=== PATIENT | female | born 1935 | race Caucasian/White ===

== ENCOUNTER → 2017-12-29 09:03 | Outpatient (CLI) | payer MEDICARE, BC, SELFPAY ==
--- NOTE | 2017-12-29 09:13 | NVE_ITS ---
Venous Exam Indications: 729.5 Pain in limb. IMPRESSIONS 1. No evidence of deep vein thrombosis involving the left lower extremity 2. Small superficial vein thrombosis involving the superficial veins of the left lower extremity History: Left lower extremity pain. Varicose veins of both lower extremities. Thrombophlebitis involving the left lower extremity. Risk factors: Hypertension. Palpable knot on the left lower extremity near the medial malleolus. Patient states it's been there for 3 weeks with little to no improvement. Denies trauma. Left lower extremity venous duplex evaluation. Doppler flow study including spectral analysis, color and izquierdo scale imaging. Location: Vascular laboratory. Patient status: Outpatient. CRITICAL FINDINGS - Reported to: ALEIDA Mahoney - Read back and verified. - 12/29/17 - 9:45 - LLE positive for SVT in a superficial vein of the distal calf Tables: Venous flow and imaging: + +-------+ + Location Overall Flow properties + +-------+ + Left common femoral Patent Normal phasicity; spontaneous; normal augmentation; compressible + +-------+ + Left saphenofemoral junction Patent Compressible + +-------+ + Left profunda femoral Patent Compressible + +-------+ + Left femoral Patent Normal phasicity; spontaneous; normal augmentation; compressible + +-------+ + Left greater saphenous Patent Normal phasicity; spontaneous; normal augmentation; compressible + +-------+ + Left popliteal Patent Normal phasicity; spontaneous; normal augmentation; compressible + +-------+ + Left posterior tibial Patent Compressible + +-------+ + Left peroneal Patent Compressible + +-------+ + Left gastrocnemius Patent Compressible + +-------+ + Left soleal Patent Compressible + +-------+ + (Report amended ) Electronically signed by: Perez Canseco [id number]
== END ==
PROVIDERS: Family Provider Internal Medicine Adolescent Medicine; PCP Internal Medicine Adolescent Medicine; Visit Provider Internal Medicine Adolescent Medicine
DX: M79.605 Pain in left leg (principal); I80.3 Phlebitis and thrombophlebitis of lower extremities, unspecified
CPT/HCPCS: 93971

== ENCOUNTER → 2018-04-14 12:32 | Outpatient (CLI) | payer MEDICARE, BC, SELFPAY ==
--- NOTE | 2018-04-14 12:40 | NVE_ITS ---
Venous Exam Indications: 729.5 Pain in limb. IMPRESSIONS 1. There is no evidence of significant Reflux. 2. No evidence of deep or superficial vein thrombosis involving the left lower extremity No change from the study of 29-Dec-2017. 3. there appears to be a superficial thrombus in superficial vein left ankle area Left lower extremity venous duplex evaluation. Doppler flow study including spectral analysis, color and izquierdo scale imaging. Location: Vascular laboratory. Patient status: Outpatient. CRITICAL FINDINGS - Reported to: Kary Arrieta office - Read back and verified. - 04/14/18 - 1315 - None Tables: Venous flow and imaging: + +-------+ + Location Overall Flow properties + +-------+ + Left common femoral Patent Normal phasicity; spontaneous; normal augmentation; compressible + +-------+ + Left saphenofemoral junction Patent Compressible + +-------+ + Left profunda femoral Patent Compressible + +-------+ + Left femoral Patent Normal phasicity; spontaneous; normal augmentation; compressible + +-------+ + Left greater saphenous Patent Normal phasicity; spontaneous; normal augmentation; compressible + +-------+ + Left popliteal Patent Normal phasicity; spontaneous; normal augmentation; compressible + +-------+ + Left posterior tibial Patent Compressible + +-------+ + Left peroneal Patent Compressible + +-------+ + Left gastrocnemius Patent Compressible + +-------+ + Left soleal Patent Compressible + +-------+ + (Report amended ) Electronically signed by: Giorgio Tinsley [id number]
== END ==
PROVIDERS: PCP Internal Medicine Adolescent Medicine; Visit Provider Internal Medicine Adolescent Medicine
DX: M79.605 Pain in left leg (principal); R60.0 Localized edema
CPT/HCPCS: 93971

== ENCOUNTER → 2018-04-20 11:18 | Outpatient (CLI) | payer MEDICARE, BC, SELFPAY ==
--- NOTE | 2018-04-20 11:19 | XR_ITS ---
XR foot wt bearing LT 3V HISTORY: ITS.REASON: hammertoe pain ORDERING PHYSICIAN: Alise Yarbrough DPM PATIENT AGE: 82 years COMPARISON: None FINDINGS: No fracture or dislocation. No lytic or blastic change. There is normal mineralization.. The joint spaces are well-preserved. No significant degenerative/arthritic changes. No erosive changes evident. Hammertoe deformity involves the second and third toes IMPRESSION: Hammertoe deformity otherwise negative
--- NOTE | 2018-04-20 11:19 | XR_ITS ---
XR foot wt bearing RT 3V HISTORY: ITS.REASON: hammertoe pain ORDERING PHYSICIAN: Alise Yarbrough DPM PATIENT AGE: 82 years COMPARISON: None FINDINGS: There is mild hallux valgus with first MTP angle of 29 degrees with osteoarthritic change of the first metatarsophalangeal joint. Hammertoe deformity involves the second toe. No fracture or dislocation. No lytic or blastic change. IMPRESSION: 1. 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 2. Hammertoe deformity second digit
== END ==
PROVIDERS: Visit Provider Podiatrist
DX: B35.1 Tinea unguium (principal); M79.671 Pain in right foot; M79.672 Pain in left foot
CPT/HCPCS: 73630; 87102; 87206; 87220

== ENCOUNTER → 2019-03-26 10:44 | Outpatient (CLI) | payer MEDICARE, BC, SELFPAY ==
--- NOTE | 2019-03-26 10:46 | MR_ITS ---
MR lower leg LT wo con CLINICAL INDICATION: ITS.REASON: MASS OF LEFT LOWER LEG ORDERING PHYSICIAN: Donavan Arrieta MD PATIENT AGE: 83 years Comparison: None TECHNIQUE: Multiplanar multiecho sequences are performed without contrast. FINDINGS: A marker is placed at the area of concern along the medial aspect of the distal leg on the left. There is mild diffuse subcutaneous edema along the medial aspect of the distal tibia and ankle region. A definite soft tissue mass is not identified. Repeat study with contrast enhancement may had increased sensitivity. No abscess is evident. No acute bony anomalies. No evidence of osteomyelitis. IMPRESSION: There is subcutaneous edema along the medial aspect of the distal leg and ankle without obvious mass or abscess. Underlying inflammation/infection/cellulitis is considered.
== END ==
PROVIDERS: PCP Internal Medicine Adolescent Medicine; Visit Provider Internal Medicine Adolescent Medicine
DX: R22.42 Localized swelling, mass and lump, left lower limb (principal)
CPT/HCPCS: 73718

== ENCOUNTER → 2019-04-15 09:48 | Outpatient (CLI) | payer MEDICARE, BC, SELFPAY ==
--- NOTE | 2019-04-15 09:53 | XR_ITS ---
XR tibia fibula LT 2V Ordering Physician: Wendy Pino MD Patient Age: 83 years: Female HISTORY: ITS.REASON: 2 views Thrombosis medial side near ankle December 20, 2017. Pain swelling TECHNIQUE: AP and lateral view tibia, fibula. COMPARISON : March 26, 2019 MRI left lower leg & left foot 04/20/2018 FINDINGS the tibia and fibula are intact. Osseous structures intact with no fracture. Bones well mineralized. No osseous lesions. Suspect varicosities most likely account for some subtle subcutaneous soft tissue density medial to the proximal tibia on frontal projection. Today's lower leg study includes 2 views of the left ankle & knee which appear intact.. There are degenerative changes at knee noted IMPRESSION: ... The left tibia and fibula intact. No osseous lesions nor abnormalities Mild degenerative changes left knee noted Suspect venous varicosities account for minimal SQ density medial to the proximal tibia.
--- NOTE | 2019-04-15 10:46 | NVE_ITS ---
Venous Exam IMPRESSIONS No evidence of deep or superficial vein thrombosis involving the left lower extremity History: Left lower extremity pain. PMH: Deep vein thrombosis. Risk factors: Hypertension. Patient had an SVT in left lower extremity 03/2018. She currently takes an 81 mg ASA daily. She denies any trauma to lower extremities. Left lower extremity venous duplex evaluation. Doppler flow study including spectral analysis, color and izquierdo scale imaging. Location: Vascular laboratory. Patient status: Outpatient. Tables: Venous flow and imaging: + +-------+ + Location Overall Flow properties + +-------+ + Left common femoral Patent Normal phasicity; spontaneous; normal augmentation; compressible + +-------+ + Left saphenofemoral junction Patent Compressible + +-------+ + Left profunda femoral Patent Compressible + +-------+ + Left femoral Patent Normal phasicity; spontaneous; normal augmentation; compressible + +-------+ + Left greater saphenous Patent Normal phasicity; spontaneous; normal augmentation; compressible + +-------+ + Left popliteal Patent Normal phasicity; spontaneous; normal augmentation; compressible + +-------+ + Left posterior tibial Patent Compressible + +-------+ + Left peroneal Patent Compressible + +-------+ + Left gastrocnemius Patent Compressible + +-------+ + Left soleal Patent Compressible + +-------+ + (Report amended ) Electronically signed by: Giorgio Tinsley [id number]
== END ==
PROVIDERS: PCP Internal Medicine Adolescent Medicine; Visit Provider Orthopaedic Surgery
DX: M89.8X6 Other specified disorders of bone, lower leg (principal); M79.89 Other specified soft tissue disorders; M79.605 Pain in left leg
CPT/HCPCS: 73590; 93971

== ENCOUNTER → 2019-06-09 12:25 | Outpatient (CLI) | payer MEDICARE, BC, SELFPAY ==
--- NOTE | 2019-06-09 12:34 | XR_ITS ---
XR wrist LT min 3V HISTORY ITS.REASON: left distal radius fracture follow up in cast ORDERING PHYSICIAN: Venkatesh Le MD PATIENT AGE: 84 years Comparison: 05/29/2019 FINDINGS: Today's obtained through a cast. Comminuted fracture is once again noted involving the distal radius with mild dorsal angulation of the distal fracture fragment overall not significant change. IMPRESSION: No change nondisplaced dorsally angulated distal radial fracture
== END ==
PROVIDERS: PCP Internal Medicine Adolescent Medicine; Visit Provider Orthopaedic Surgery
DX: S52.502A Unspecified fracture of the lower end of left radius, initial encounter for closed fracture (principal)
CPT/HCPCS: 73110

== ENCOUNTER → 2019-07-07 08:52 | Outpatient (CLI) | payer MEDICARE, BC, SELFPAY ==
--- NOTE | 2019-07-07 08:57 | XR_ITS ---
XR wrist LT min 3V HISTORY follow-up fracture ITS.REASON: wrist fracture ORDERING PHYSICIAN: Venkatesh Le MD PATIENT AGE: 84 years Comparison: 06/09/2019 FINDINGS: Casted been removed. Healing impacted fracture present involving the distal radius with mild dorsal displacement of the distal fracture fragment x 5 mm along with mild dorsal angulation of the distal fracture fragment. There is mild dorsal displacement of the lunate. Degenerative changes are present at the first metacarpal carpal joint and scaphotrapezium joint. IMPRESSION: Healing displaced distal radial fracture
== END ==
PROVIDERS: PCP Internal Medicine Adolescent Medicine; Visit Provider Orthopaedic Surgery
DX: S62.102A Fracture of unspecified carpal bone, left wrist, initial encounter for closed fracture (principal)
CPT/HCPCS: 73110

== ENCOUNTER 2019-07-07 10:16 | Outpatient (RCR) | payer MEDICARE, BC, SELFPAY | END 2019-07-07 10:30 | disposition home or self-care (01) | LOC: OT 10:16 | PROVIDERS: Visit Provider Orthopaedic Surgery | DX: S52.502K Unspecified fracture of the lower end of left radius, subsequent encounter for closed fracture with nonunion (principal) | CPT/HCPCS: 97763 ==

== ENCOUNTER 2019-08-16 08:00 | Outpatient (RCR) | payer MEDICARE, BC, SELFPAY ==
--- NOTE | 2019-07-12 08:38 | HMH.OTOPEV ---
OT Inpatient Evaluation Rehab OT Outpatient Eval Start: 07/12/19 08:26 Freq: Status: Active Protocol: Document 07/12/19 08:27 TFRY (Rec: 07/12/19 08:36 TFRY [id number]) Electronically Signed By Mandy Enriquez OT 07/12/19 08:27 Outpatient Therapy Subjective History Subjective History This is a 84 year old right handed female referred to occupational therapy for left distal radius fracture. Patient reports falling on May 29 in her yard backwards. She has been seen by Dr. Le and was in a cast for 6 weeks. Chief Complaint Pain,Stiff Symptom Type Ache,Burning,Tingling Symptoms Relieved By Rest/Positioning,Brace/Support Symptoms Aggravated By Physical Activity Prior Functional Limitations None Current Functional Limitations Housework,Dressing,Sleeping Symptom Description Constant but Variable Level of pain today (0-10) 3 Pain scale - at its best (0-10) 3 Pain scale - at its worst (0-10) 8 Wrist/Hand Eval Wrist Range of Motion Left Wrist Limitations of Range of Motion Pain Wrist Extension Active Range of Motion ( 50 degrees) Wrist Extension Passive Range of Motion 60 (degrees) Wrist Flexion Active Range of Motion ( 30 degrees) Wrist Flexion Passive Range of Motion ( 50 degrees) Wrist Radial Deviation Active Range of 0 Motion (degrees) Wrist Radial Deviation Passive Range of 0 Motion (degrees) Wrist Ulnar Deviation Active Range of 0 Motion (degrees) Wrist Ulnar Deviation Passive Range of 0 Motion (degrees) Wrist Manual Muscle Testing Left Wrist Extension Strength Grade 3 Fair Wrist Flexion Strength Grade 3 Fair Wrist Radial Deviation Strength Grade 3 Fair Wrist Ulnar Deviation Strength Grade 3 Fair Product Safety Test Engineer/Pinch Strength Product Safety Test Engineer Strength Measurement (lbs) 5 OT Outpatient Assessment Impairments Problems/Impairments Impaired Range of Motion, Impaired Strength,Impaired Dressing,Subjective C/O Pain Prognosis Rehab Potential Good Clinical Impression Consistent with Diagnosis Yes Short Term Goals Number of Weeks 3 Increase Range of Motion Yes: AROM Left wrist flexion - 35; ext. - 55 Increase Strength Yes: Left wrist strength - 3+/ 5; Left physicist acoustics strength - 10 lbs Improve Ability to Dress Self Yes Improve Ability For Househol
== END 2019-09-01 13:00 | disposition home or self-care (01) ==
LOC: OT 08:00
PROVIDERS: PCP Internal Medicine Adolescent Medicine; Visit Provider Orthopaedic Surgery
DX: S52.502K Unspecified fracture of the lower end of left radius, subsequent encounter for closed fracture with nonunion (principal)
CPT/HCPCS: 97014; 97110; 97140; 97165; G0283

== ENCOUNTER → 2019-08-18 09:14 | Outpatient (CLI) | payer MEDICARE, BC, SELFPAY ==
--- NOTE | 2019-08-18 09:27 | XR_ITS ---
PROCEDURE: XR WRIST LT MIN 3V CLINICAL INDICATION: left distal radius fracture follow up Follow-up fracture knee COMPARISON: Wrist L from 05/29/2019 FINDINGS: There is a healing fracture involving the distal aspect of the radius which is nondisplaced. There is mild dorsal angulation of the distal fracture fragment approximately 20 degrees. The fracture line is less visible compared to the previous exam. Severe osteoarthritic changes are present at the 1st metacarpal-carpal joint. IMPRESSION: Healing nondisplaced distal radial fracture with dorsal angulation of the distal fracture fragment Dictated by: Giorgio Tinsley MD 08/18/2019 10:39 Electronically signed by Giorgio Tinsley MD in [place] 08/18/2019 10:39
== END ==
PROVIDERS: PCP Internal Medicine Adolescent Medicine; Visit Provider Orthopaedic Surgery
DX: S52.502A Unspecified fracture of the lower end of left radius, initial encounter for closed fracture (principal)
CPT/HCPCS: 73110

== ENCOUNTER → 2019-10-04 09:49 | Outpatient (CLI) | payer MEDICARE, BC, SELFPAY ==
--- NOTE | 2019-10-04 09:59 | XR_ITS ---
PROCEDURE: XR DEXA AXIAL SKELETON CLINICAL HISTORY: OSTEOPOROSIS COMPARISON: No exams were available for comparison FINDINGS: The L1-L4 density is 1.125 grams/centimeters sq with a T-score of -0.5. Left femoral neck density is 0.959 grams/centimeters sq with a T-score -0.6 the IMPRESSION: Normal bone density with low fracture risk. Suggest follow-up exam October 2021 Dictated by: Giorgio Tinsley MD 10/04/2019 12:08 Electronically signed by Giorgio Tinsley MD in [place] 10/04/2019 12:08
== END ==
PROVIDERS: PCP Internal Medicine Adolescent Medicine; Visit Provider Internal Medicine Adolescent Medicine
DX: M81.0 Age-related osteoporosis without current pathological fracture (principal)
CPT/HCPCS: 77080

== ENCOUNTER → 2020-08-23 08:04 | Outpatient (CLI) | payer MEDICARE, BC, SELFPAY ==
[2020-08-23 15:21] LABS: Basophils # 0.1 K/mm3 (0-0.2); Eosinophils # 0.1 K/mm3 (0.0-0.4); Hematocrit 40.2 % (37.0-47.0); Hemoglobin 13.4 g/dL (12.2-16.2); Lymphocytes # 1.6 K/mm3 (0.7-4.5); Mean Corpuscular HGB Conc 33.3 g/dL (31.8-35.4); Mean Corpuscular Hemoglobin 31.1 pg (27.0-31.2); Mean Corpuscular Volume 93.2 fl (81-99); Mean Platelet Volume 9.3 fl (7.4-10.4); Monocytes # 0.7 K/mm3 (0.1-1.0); Monocytes % 12.9 % (1.7-9.3); Neutrophils # 2.9 K/mm3 (1.8-7.8); Neutrophils % 55.1 % (37.0-80.0); Platelet Count 252 K/mm3 (142-424); Red Blood Count 4.32 M/mm3 (4.20-5.40); Red Cell Distribution Width 13.3 % (11.5-17.5); White Blood Count 5.4 K/mm3 (4.8-10.8)
[2020-08-23 15:27] LABS: Chloride 104 mmol/L (98-107)
[2020-08-23 15:28] LABS: Potassium 4.5 mmoL/L (3.5-5.1); Sodium 140 mmol/L (136-145)
[2020-08-23 15:30] LABS: Alanine Aminotransferase 18 U/L (12-78); Albumin/Globulin Ratio 1.5 (1.1-1.8); Alkaline Phosphatase 73 U/L (38-126); Anion Gap 12.5 mEq/L (5-15); Aspartate Amino Transferase 33 U/L (14-36); Bilirubin,Total 0.6 mg/dl (0.2-1.3); Blood Urea Nitrogen 22 mg/dl (7-17); Carbon Dioxide 28 mmol/L (22.0-30.0); Cholesterol 218 mg/dl (140-200); Estimated Glomerular Filt Rate 60 ml/min (>60); GFR (African American) 72 ML/MIN (>60); Globulin 2.7 g/dL (1.3-3.2); Total Protein,Serum 6.7 g/dl (6.3-8.2); Triglycerides 77 mg/dl (30-150); VLDL Cholesterol 15 mg/dL (0-40)
[2020-08-23 15:31] LABS: Calcium 9.8 mg/dl (8.4-10.2); Chol/HDL Ratio 2.7 (1-3.5); Glucose 102 mg/dl (74-100); HDL Cholesterol 80 mg/dl (40-60)
[2020-08-23 15:42] LABS: Direct LDL Cholesterol 112.18 mg/dL (100-129)
== END ==
PROVIDERS: Visit Provider Internal Medicine Adolescent Medicine
DX: E78.5 Hyperlipidemia, unspecified (principal); I10 Essential (primary) hypertension
CPT/HCPCS: 36415; 80053; 80061; 85025

== ENCOUNTER → 2021-02-13 10:47 | Outpatient (CLI) | payer MEDICARE, BC, SELFPAY ==
[2021-02-13 14:12] LABS: Chloride 106 mmol/L (98-107)
[2021-02-13 14:13] LABS: Potassium 4.4 mmoL/L (3.5-5.1); Sodium 139 mmol/L (136-145)
[2021-02-13 14:15] LABS: Alanine Aminotransferase 18 U/L (12-78); Alkaline Phosphatase 94 U/L (38-126); Aspartate Amino Transferase 33 U/L (14-36); Bilirubin,Total 0.5 mg/dl (0.2-1.3); Blood Urea Nitrogen 24 mg/dl (7-17); Estimated Glomerular Filt Rate 68 ml/min (>60); GFR (African American) 82 ML/MIN (>60)
[2021-02-13 14:16] LABS: Albumin Level 4.4 g/dl (3.5-5.0); Albumin/Globulin Ratio 1.6 (1.1-1.8); Anion Gap 10.4 mEq/L (5-15); Calcium 10.2 mg/dl (8.4-10.2); Carbon Dioxide 27 mmol/L (22.0-30.0); Chol/HDL Ratio 2.8 (1-3.5); Cholesterol 229 mg/dl (140-200); Globulin 2.8 g/dL (1.3-3.2); Glucose 96 mg/dl (74-100); HDL Cholesterol 82 mg/dl (40-60); Total Protein,Serum 7.2 g/dl (6.3-8.2); Triglycerides 70 mg/dl (30-150); VLDL Cholesterol 14 mg/dL (0-40)
[2021-02-13 14:34] LABS: Direct LDL Cholesterol 113.64 mg/dL (100-129)
[2021-02-13 15:06] LABS: Basophils % 0.6 % (0.1-2.0); Eosinophils % 0.4 % (0.1-12.0); Hematocrit 38.6 % (37.0-47.0); Hemoglobin 12.7 g/dL (12.2-16.2); Lymphocytes # 1.4 K/mm3 (0.7-4.5); Lymphocytes % 27.5 % (10-50); Mean Corpuscular Hemoglobin 29.7 pg (27.0-31.2); Mean Corpuscular Volume 90.1 fl (81-99); Mean Platelet Volume 8.8 fl (7.4-10.4); Monocytes # 0.6 K/mm3 (0.1-1.0); Monocytes % 10.8 % (1.7-9.3); Neutrophils # 3.1 K/mm3 (1.8-7.8); Neutrophils % 60.8 % (37.0-80.0); Platelet Count 255 K/mm3 (142-424); Red Blood Count 4.28 M/mm3 (4.20-5.40); Red Cell Distribution Width 13.2 % (11.5-17.5); White Blood Count 5.1 K/mm3 (4.8-10.8)
== END ==
PROVIDERS: Visit Provider Internal Medicine Adolescent Medicine
DX: I10 Essential (primary) hypertension (principal); E78.5 Hyperlipidemia, unspecified
CPT/HCPCS: 36415; 80053; 80061; 85025

== ENCOUNTER → 2021-08-28 10:30 | Outpatient (CLI) | payer MEDICARE, BC, SELFPAY ==
[2021-08-28 13:30] LABS: Basophils % 0.5 % (0.1-2.0); Eosinophils % 0.6 % (0.1-12.0); Hematocrit 39.3 % (37.0-47.0); Hemoglobin 12.4 g/dL (12.2-16.2); Lymphocytes # 1.7 K/mm3 (0.7-4.5); Lymphocytes % 26.4 % (10-50); Mean Corpuscular HGB Conc 31.7 g/dL (31.8-35.4); Mean Corpuscular Hemoglobin 30.4 pg (27.0-31.2); Mean Platelet Volume 9.6 fl (7.4-10.4); Monocytes # 0.4 K/mm3 (0.1-1.0); Monocytes % 6.8 % (1.7-9.3); Neutrophils # 4.2 K/mm3 (1.8-7.8); Neutrophils % 65.7 % (37.0-80.0); Platelet Count 264 K/mm3 (142-424); Red Blood Count 4.09 M/mm3 (4.20-5.40); Red Cell Distribution Width 13.1 % (11.5-17.5); White Blood Count 6.4 K/mm3 (4.8-10.8)
[2021-08-28 13:53] LABS: Anion Gap 11.4 mEq/L (5-15); Blood Urea Nitrogen 17 mg/dl (7-17); Calcium 9.8 mg/dl (8.4-10.2); Carbon Dioxide 29 mmol/L (22.0-30.0); Chloride 105 mmol/L (98-107); Chol/HDL Ratio 2.7 (1-3.5); Cholesterol 222 mg/dl (140-200); Estimated Glomerular Filt Rate 68 ml/min (>60); GFR (African American) 82 ML/MIN (>60); Glucose 94 mg/dl (74-100); HDL Cholesterol 82 mg/dl (40-60); Potassium 4.4 mmoL/L (3.5-5.1); Sodium 141 mmol/L (136-145); Triglycerides 71 mg/dl (30-150); VLDL Cholesterol 14 mg/dL (0-40)
[2021-08-28 14:03] LABS: Direct LDL Cholesterol 106.84 mg/dL (100-129)
[2021-08-28 14:09] LABS: 25-OH Vitamin D, Total 45.4 ng/mL (30-100)
== END ==
PROVIDERS: Visit Provider Internal Medicine Adolescent Medicine
DX: E78.5 Hyperlipidemia, unspecified (principal); M81.0 Age-related osteoporosis without current pathological fracture
CPT/HCPCS: 36415; 80048; 80061; 82306; 85025

== ENCOUNTER → 2021-11-21 13:24 | Outpatient (CLI) | payer MEDICARE, BC, SELFPAY ==
[2021-11-21 13:55] LABS: Basophils # 0.1 K/mm3 (0-0.2); Eosinophils % 0.4 % (0.1-12.0); Hemoglobin 13.3 g/dL (12.2-16.2); Lymphocytes # 2.4 K/mm3 (0.7-4.5); Lymphocytes % 38.5 % (10-50); Mean Corpuscular HGB Conc 32.5 g/dL (31.8-35.4); Mean Corpuscular Hemoglobin 30.6 pg (27.0-31.2); Mean Corpuscular Volume 94.2 fl (81-99); Mean Platelet Volume 8.6 fl (7.4-10.4); Monocytes # 0.6 K/mm3 (0.1-1.0); Monocytes % 9.5 % (1.7-9.3); Neutrophils # 3.1 K/mm3 (1.8-7.8); Neutrophils % 50.5 % (37.0-80.0); Platelet Count 230 K/mm3 (142-424); Red Blood Count 4.35 M/mm3 (4.20-5.40); Red Cell Distribution Width 13.3 % (11.5-17.5); White Blood Count 6.1 K/mm3 (4.8-10.8)
[2021-11-21 13:56] LABS: Chloride 105 mmol/L (98-107); Potassium 4.8 mmoL/L (3.5-5.1); Sodium 139 mmol/L (136-145)
[2021-11-21 13:58] LABS: Blood Urea Nitrogen 18 mg/dl (7-17); Estimated Glomerular Filt Rate 59 ml/min (>60); GFR (African American) 72 ML/MIN (>60)
[2021-11-21 13:59] LABS: Alanine Aminotransferase 20 U/L (12-78); Albumin Level 4.5 g/dl (3.5-5.0); Albumin/Globulin Ratio 1.6 (1.1-1.8); Alkaline Phosphatase 79 U/L (38-126); Anion Gap 11.8 mEq/L (5-15); Aspartate Amino Transferase 39 U/L (14-36); Bilirubin,Total 0.5 mg/dl (0.2-1.3); Calcium 9.7 mg/dl (8.4-10.2); Carbon Dioxide 27 mmol/L (22.0-30.0); Globulin 2.9 g/dL (1.3-3.2); Glucose 102 mg/dl (74-100); Total Protein,Serum 7.4 g/dl (6.3-8.2)
--- NOTE | 2021-11-21 16:27 | MR_ITS ---
PROCEDURE INFORMATION: Exam: MR Left Lower Extremity Joint Without Contrast; Ankle Exam date and time: 11/21/2021 4:27 PM Age: 86 years old Clinical indication: Patient HX: Chronic left ankle pain and edema without injury TECHNIQUE: Imaging protocol: MR of the Left lower extremity without contrast. Exam focused on the ankle. COMPARISON: US CA venous doppler LE LT 04/15/2019 10:52 AM FINDINGS: Bones and cartilage: No fracture or suspicious marrow signal. There is mild probable reactive and degenerative marrow edema on either side of the talonavicular articulation with associated cartilage loss. Joint spaces: No joint effusion. LIGAMENTS: Distal tibiofibular syndesmosis: Unremarkable. No tear. Anterior talofibular ligament: Unremarkable. No tear. Posterior talofibular ligament: Unremarkable. No tear. Calcaneofibular ligament: Unremarkable. No tear. Deltoid ligament complex: Unremarkable. No tear. TENDONS: Flexor tendons of foot: Unremarkable as visualized. Tibialis posterior tendon: Unremarkable as visualized. Peroneal tendons: Degenerative flattening and limited longitudinal split peroneus brevis tendon as it crosses the lateral malleolus. No full-thickness retracted tear. Extensor tendons of foot: Unremarkable as visualized. Tibialis anterior tendon: Unremarkable as visualized. Achilles tendon: Unremarkable as visualized. Tarsal canal (Sinus tarsi): Unremarkable. Normal signal of the fat. Tarsal tunnel: Unremarkable. Muscles: Unremarkable. Soft tissues: Mild subcutaneous edema around the ankle, usually passive edema if there is no clinical evidence of infection. Plantar fascia: Plantar fascia is unremarkable. IMPRESSION: 1. No fracture or suspicious marrow signal. There is mild probable reactive and degenerative marrow edema on either side of the talonavicular articulation with associated cartilage loss. 2. Mild subcutaneous edema around the ankle, usually passive edema if there is no clinical evidence of infection. 3. Degenerative flattening and limited longitudinal split peroneus brevis tendon as it crosses the lateral malleolus. No full-thickness retracted tear.
[2021-11-23 13:27] LABS: Peripheral Smear Review Scanned Result
== END ==
PROVIDERS: PCP Internal Medicine Adolescent Medicine; Visit Provider Internal Medicine Adolescent Medicine
DX: M25.572 Pain in left ankle and joints of left foot (principal); R23.4 Changes in skin texture; D49.2 Neoplasm of unspecified behavior of bone, soft tissue, and skin
CPT/HCPCS: 36415; 73721; 80053; 85025

== ENCOUNTER → 2022-08-22 06:55 | Outpatient (CLI) | payer MEDICARE, BC, SELFPAY ==
[2022-08-22 18:46] LABS: Basophils # 0.1 K/mm3 (0-0.2); Basophils % 1.3 % (0.1-2.0); Eosinophils % 0.8 % (0.1-12.0); Hematocrit 38.9 % (37.0-47.0); Hemoglobin 12.7 g/dL (12.2-16.2); Lymphocytes # 2.1 K/mm3 (0.7-4.5); Lymphocytes % 36.1 % (10-50); Mean Corpuscular HGB Conc 32.6 g/dL (31.8-35.4); Mean Corpuscular Hemoglobin 30.2 pg (27.0-31.2); Mean Corpuscular Volume 92.7 fl (81-99); Mean Platelet Volume 9.5 fl (7.4-10.4); Monocytes # 0.7 K/mm3 (0.1-1.0); Monocytes % 12.5 % (1.7-9.3); Neutrophils # 2.9 K/mm3 (1.8-7.8); Neutrophils % 49.5 % (37.0-80.0); Platelet Count 264 K/mm3 (142-424); Red Blood Count 4.19 M/mm3 (4.20-5.40); Red Cell Distribution Width 13.3 % (11.5-17.5); White Blood Count 5.9 K/mm3 (4.8-10.8)
[2022-08-22 18:53] LABS: Alanine Aminotransferase 17 U/L (12-78); Albumin Level 4.1 g/dl (3.5-5.0); Albumin/Globulin Ratio 1.6 (1.1-1.8); Alkaline Phosphatase 93 U/L (38-126); Aspartate Amino Transferase 34 U/L (14-36); Bilirubin,Total 0.4 mg/dl (0.2-1.3); Blood Urea Nitrogen 27 mg/dl (7-17); Calcium 9.6 mg/dl (8.4-10.2); Carbon Dioxide 25 mmol/L (22.0-30.0); Chloride 103 mmol/L (98-107); Estimated Glomerular Filt Rate 52 ml/min (>60); GFR (African American) 63 ML/MIN (>60); Globulin 2.6 g/dL (1.3-3.2); Glucose 95 mg/dl (74-100); Sodium 138 mmol/L (136-145); Total Protein,Serum 6.7 g/dl (6.3-8.2)
== END ==
PROVIDERS: PCP Internal Medicine Adolescent Medicine; Visit Provider Internal Medicine Adolescent Medicine
DX: B35.1 Tinea unguium (principal); I10 Essential (primary) hypertension
CPT/HCPCS: 80053; 85025

== ENCOUNTER → 2023-03-18 16:56 | Outpatient (CLI) | payer MEDICARE, BC, SELFPAY ==
[2023-03-18 17:33] LABS: Basophils % 0.6 % (0.1-2.0); Eosinophils % 0.3 % (0.1-12.0); Hematocrit 39.8 % (37.0-47.0); Hemoglobin 12.5 g/dL (12.2-16.2); Lymphocytes # 1.4 K/mm3 (0.7-4.5); Lymphocytes % 28.6 % (10-50); Mean Corpuscular HGB Conc 31.4 g/dL (31.8-35.4); Mean Corpuscular Hemoglobin 28.8 pg (27.0-31.2); Mean Corpuscular Volume 91.7 fl (81-99); Mean Platelet Volume 9.6 fl (7.4-10.4); Monocytes # 0.6 K/mm3 (0.1-1.0); Monocytes % 11.5 % (1.7-9.3); Neutrophils # 2.9 K/mm3 (1.8-7.8); Platelet Count 211 K/mm3 (142-424); Red Blood Count 4.33 M/mm3 (4.20-5.40); Red Cell Distribution Width 13.4 % (11.5-17.5)
[2023-03-18 18:10] LABS: Alanine Aminotransferase 42 U/L (12-78); Albumin Level 4.1 g/dl (3.5-5.0); Albumin/Globulin Ratio 1.6 (1.1-1.8); Alkaline Phosphatase 91 U/L (38-126); Aspartate Amino Transferase 50 U/L (14-36); Bilirubin,Total 0.7 mg/dl (0.2-1.3); Blood Urea Nitrogen 24 mg/dl (7-17); Calcium 8.9 mg/dl (8.4-10.2); Carbon Dioxide 28 mmol/L (22.0-30.0); Chloride 105 mmol/L (98-107); Chol/HDL Ratio 2.6 (1-3.5); Cholesterol 185 mg/dl (140-200); Estimated Glomerular Filt Rate 59 ml/min (>60); GFR (African American) 72 ML/MIN (>60); Globulin 2.5 g/dL (1.3-3.2); Glucose 94 mg/dl (74-100); HDL Cholesterol 72 mg/dl (40-60); Sodium 138 mmol/L (136-145); Total Protein,Serum 6.6 g/dl (6.3-8.2); Triglycerides 53 mg/dl (30-150); VLDL Cholesterol 11 mg/dL (0-40)
[2023-03-18 18:17] LABS: NT Pro Brain Natriuretic Pep. 1130 pg/mL (0-450)
[2023-03-18 18:21] LABS: Direct LDL Cholesterol 86.48 mg/dL (100-129)
[2023-03-18 18:23] LABS: Free T4 (Free Thyroxine) 1.38 ng/dl (0.78-2.19)
[2023-03-18 18:38] LABS: Thyroid Stimulating Hormone 1.88 uIU/mL (0.465-4.68)
== END ==
PROVIDERS: PCP Family Medicine; Visit Provider Family Medicine
DX: I10 Essential (primary) hypertension (principal); I49.9 Cardiac arrhythmia, unspecified; I50.9 Heart failure, unspecified
CPT/HCPCS: 80053; 80061; 83880; 84439; 84443; 85025

== ENCOUNTER → 2023-03-24 10:09 | Outpatient (CLI) | payer MEDICARE, BC, SELFPAY | PROVIDERS: PCP Family Medicine; Visit Provider Nurse Practitioner Family | DX: I10 Essential (primary) hypertension (principal); I48.91 Unspecified atrial fibrillation; R60.0 Localized edema; R94.31 Abnormal electrocardiogram [ECG] [EKG] | CPT/HCPCS: 93306 ==

== ENCOUNTER → 2023-03-27 06:04 | Outpatient (CLI) | payer MEDICARE, BC, SELFPAY | PROVIDERS: PCP Family Medicine; Visit Provider Nurse Practitioner | DX: R06.02 Shortness of breath; I48.19 Other persistent atrial fibrillation; E78.5 Hyperlipidemia, unspecified; I08.0 Rheumatic disorders of both mitral and aortic valves; I10 Essential (primary) hypertension; R60.9 Edema, unspecified; R94.31 Abnormal electrocardiogram [ECG] [EKG] | CPT/HCPCS: 78452; 93017; A9500; J2785 ==

== ENCOUNTER → 2023-04-11 13:10 | Outpatient (CLI) | payer MEDICARE, BC, SELFPAY ==
--- NOTE | 2023-04-11 13:16 | US_ITS ---
FINAL REPORT CLINICAL HISTORY: discoloration of Left lower leg COMPARISON: None FINDINGS: LOWER EXTREMITY SEGMENTAL PRESSURE MEASUREMENTS FINDINGS: Pressure indices are as follows: RIGHT LOWER EXTREMITY: Thigh: 1.04 Calf: 1.08 Ankle, posterior tibial artery: 1.07 Ankle, dorsalis pedis: 1.00 Toe: 0.69 Comments: Normal LEFT LOWER EXTREMITY: Thigh: 1.00 Calf: 1.04 Ankle, posterior tibial artery: 1.08 Ankle, dorsalis pedis: 1.04 Toe: 0.63 Comments: Normal IMPRESSION: No evidence of occlusive arterial disease bilateral lower extremities. Reviewed, Interpreted and Dictated by Jerry Arriaga MD Transcribed by Dominique Verma Authenticated and [facility]
== END ==
PROVIDERS: PCP Family Medicine; Visit Provider Nurse Practitioner
DX: I73.9 Peripheral vascular disease, unspecified (principal); L81.9 Disorder of pigmentation, unspecified
CPT/HCPCS: 93923

== ENCOUNTER 2024-04-13 08:48 | Outpatient (CLI) | payer MEDICARE, BC, SELFPAY ==
--- NOTE | 2024-04-13 08:57 | XR_ITS ---
FINAL REPORT CLINICAL HISTORY: pain right hip FINDINGS: Right hip Three views were obtained. There is no acute fracture or dislocation. There are moderate degenerative changes. No soft tissue abnormality is identified. IMPRESSION: Moderate degenerative changes. Reviewed, Interpreted and Dictated by Jonathan Laird III, MD Transcribed by Marina Steen Authenticated and [facility]
--- NOTE | 2024-04-13 08:57 | XR_ITS ---
FINAL REPORT CLINICAL HISTORY: lump at distal left tibia FINDINGS: Left tibia fibula Two views were obtained. There is no acute fracture or dislocation. There are mild degenerative changes of the knee and ankle. There is soft tissue swelling about the ankle. IMPRESSION: No acute process. Reviewed, Interpreted and Dictated by Jonathan Laird III, MD Transcribed by Marina Steen Authenticated and . [facility]
== END 2024-04-13 23:59 | disposition home or self-care (01) ==
LOC: RAD 08:50
PROVIDERS: PCP Family Medicine; Visit Provider Family Medicine
DX: R22.42 Localized swelling, mass and lump, left lower limb; M25.551 Pain in right hip
CPT/HCPCS: 73502; 73590

== ENCOUNTER 2024-04-13 20:27 | Emergency (ER) | payer MEDICARE, BC, SELFPAY ==
[2024-04-13] VITALS (7 sets, daily range): BP systolic 104–130; BP diastolic 47–78; PULSE 43–102; RESP 14–16; TEMP 36.8; O2SAT 92–100; BMI 22.3
[2024-04-13] MEDS: ACETAMINOPHEN 500MG TAB 1000 MG PO (20:51)
[2024-04-13] MEDS: KETOROLAC 30MG/ML VIAL 15 MG IV (20:52)
[2024-04-13] MEDS: DEXAMETHASONE 4MG/ML 1ML VIAL 10 MG IV (20:52)
[2024-04-13 20:59] LABS: Basophils # 0.1 K/mm3 (0-0.2); Basophils % 0.6 % (0.1-2.0); Eosinophils # 0.1 K/mm3 (0.0-0.4); Eosinophils % 0.6 % (0.1-12.0); Hematocrit 34.6 % (37.0-47.0); Lymphocytes # 1.4 K/mm3 (0.7-4.5); Lymphocytes % 16.8 % (10-50); Mean Corpuscular HGB Conc 31.7 g/dL (31.8-35.4); Mean Corpuscular Hemoglobin 31.9 pg (27.0-31.2); Mean Corpuscular Volume 100.4 fl (81-99); Mean Platelet Volume 8.8 fl (7.4-10.4); Monocytes # 0.9 K/mm3 (0.1-1.0); Monocytes % 10.3 % (1.7-9.3); Neutrophils # 6.1 K/mm3 (1.8-7.8); Neutrophils % 71.7 % (37.0-80.0); Platelet Count 216 K/mm3 (142-424); Red Blood Count 3.45 M/mm3 (4.20-5.40); Red Cell Distribution Width 13.5 % (11.5-17.5); White Blood Count 8.5 K/mm3 (4.8-10.8)
[2024-04-13 21:11] LABS: C-Reactive Protein 6.3 mg/L (0-4)
[2024-04-13 21:27] LABS: Erythrocyte Sedimentation Rate 25 mm/hr (0-30)
--- NOTE | 2024-04-13 21:49 | ED_ITS ---
Discharge Plan Disposition Patient Disposition: Xfer Critical Access Hosp Condition: Fair Prescriptions Prescriptions: No Action calcium carbonate-vitamin D3 [Calcium with Vitamin D] 600 mg-10 mcg (400 unit) tablet 1 tab PO DAILY Xarelto 20 mg tablet 20 mg PO DAILY Qty: 30 2RF Rx Instructions: must administer with evening meal furosemide 20 mg tablet 20 mg PO QAM Qty: 90 3RF bisoprolol fumarate 10 mg tablet 10 mg PO DAILY Qty: 30 2RF Referrals Follow up/Referrals: Justen Dietrich MD [Primary Care Provider] - See instructions Clinical Impressions Clinical Impression: Acute pain of right hip Sciatica Qualifiers: Laterality: right Qualified Code(s): M54.31 - Sciatica, right side Stand Alone Forms Stand Alone Forms: Transfer Record - ED Discharge ED Provider: Neo Paz General Adult HPI <LANE Julien - Last Filed: 04/13/24 23:07> General Chief complaint: PAIN Stated complaint: R leg pain Time Seen by Provider: 04/13/24 20:29 Mode of Arrival: EMS Source of Information: Patient and EMS Limitations: No Limitations Description of Symptoms (Recalled from ER Triage Doc. by RN): Pt brought from home by [facility] with complaints of intermittent right hip and leg pain that started 1 week ago. Pt saw Dr Castillo whom did xrays todaywhich were negative. Pt went home and has had a severe increase in pain and unable to walk at home. History of Present Illness HPI narrative: Patient presents for evaluation of right hip and leg pain. Patient has a 1 week history of right lower extremity pain for the last week. Patient stated that it happened after catching herself from falling but she did not actually fall. Patient has been uncomfortable but has been able to walk and function but no home remedies have improved her pain. Patient saw her PCP who ordered plain film imaging that did not show any acute processes or explanations for her symptoms. However patient got home this evening and has had a sudden increase in right hip pain and right lower extremity pain that she rates as a 10 out of 10. She denies loss of motor or sensory but cannot bear weight due to the pain. Patient denies loss of bowel or bladder function or change in same. Related Data Home Medications Medication Instructions Recorded Confirmed calcium carbonate 600 mg-vitamin 1 tab PO DAILY 09/22/22 05/13/24 D3 10 mcg (400 unit) tablet (Calcium with Vitamin D) Previous Rx's Medication Instructions Recorded rivaroxaban 20 mg tablet (Xarelto) 20 mg PO DAILY #30 tabs 01/15/24 bisoprolol fumarate 10 mg tablet 10 mg PO DAILY #30 tabs 01/27/24 furosemide 20 mg tablet 20 mg PO QAM #90 tabs 01/27/24 Allergies Allergy/AdvReac Type Severity Reaction Status Date / Time Sulfa (Sulfonamide Allergy Verified 04/12/24 11:14 Antibiotics) [facility] <LANE [facility]ien - Last Filed: 04/13/24 23:07> [facility] Disclaimer: The information contained in this section may have been updated after the patient was seen, as this information can be updated by other users. 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 Biatrial enlargement Aortic regurgitation Mitral and aortic regurgitation Hyperlipidemia SOBOE (shortness of breath on exertion) Atrial fibrillation with RVR Abnormal electrocardiogram [ECG] [EKG] Edema Atrial fibrillation HTN (hypertension), benign DVT (deep venous thrombosis) Surgical History Hx of tonsillectomy Family History Other Cancer Social History Smoking Status: Never smoker alcohol intake: never substance use type: denies use current occupational status: retired Travel in the last 8 weeks: None <LANE Julien - Last Filed: 04/13/24 23:07> ROS Obtained: Yes Systems reviewed as appropriate & no additional complaints except as documented Physical Exam <LANE Julien - Last Filed: 04/13/24 23:07> General General appearance: alert and in distress (Pain) Respiratory Respiratory exam: Present normal lung sounds bilaterally; Absent respiratory distress or accessory muscle use Cardiovascular Cardiovascular exam: Present regular rate and normal rhythm Abdominal Exam Abdominal exam: Present soft; Absent tenderness Extremities Exam Extremities exam: Present normal inspection Back Exam Back exam: Present normal inspection Neurological Exam Neurological exam: Present alert, oriented X3 and CN II-XII intact Psychiatric Psychiatric exam: Present agitated (Due to pain) Skin Skin exam: Present warm, dry and normal color Other Other exam information: 3 unaffected extremities are intact grossly to exam however range of motion testing cannot be done to the patient's exquisite pain. Patient has tenderness to palpation across her right-sided low back and has diminished range of motion due to pain at the right hip. Patient is neurovascularly intact distally in the right lower extremity. However patient has exquisite pain to palpation at the left hip specifically. No bony deformity noted. No skin changes noted. No ecchymosis noted. No contusions noted. Medical Decision Making <LANE Julien - Last Filed: 04/13/24 23:07> Medical Records Medical records reviewed: Yes I reviewed the patient's medical records. Akhil Inquiry Pt receiving controlled substance: No Vital Signs: 04/13/24 20:27 04/13/24 21:30 04/13/24 22:00 Temperature 98.3 F Temperature Source Oral Pulse Rate 80 43 L Pulse Rate [Left] 82 Respiratory Rate 16 Blood Pressure 126/63 130/78 Blood Pressure [Right Arm] 124/77 Blood Pressure Mean 101 Blood Pressure Mean [Right Arm] 92 Blood Pressure Source Blood Pressure Source [Right Arm] Automatic Cuff Blood Pressure Position 02 Sat by Pulse Oximetry 98 96 100 Oxygen Delivery Method Room Air 04/13/24 22:27 04/13/24 22:40 04/13/24 23:00 Temperature 98.3 F Temperature Source Oral Pulse Rate 71 92 H 86 Pulse Rate [Left] Respiratory Rate 14 Blood Pressure 108/60 L 107/58 L 107/58 L Blood Pressure [Right Arm] Blood Pressure Mean Blood Pressure Mean [Right Arm] Blood Pressure Source Automatic Cuff Blood Pressure Source [Right Arm] Blood Pressure Position Supine 02 Sat by Pulse Oximetry 98 97 92 L Oxygen Delivery Method Room Air 04/13/24 23:30 04/14/24 00:00 04/14/24 00:30 Temperature Temperature Source Pulse Rate 102 H 108 H 97 H Pulse Rate [Left] Respiratory Rate Blood Pressure 104/47 L 106/69 L 104/58 L Blood Pressure [Right Arm] Blood Pressure Mean Blood Pressure Mean [Right Arm] Blood Pressure Source Blood Pressure Source [Right Arm] Blood Pressure Position 02 Sat by Pulse Oximetry 95 96 95 Oxygen Delivery Method 04/14/24 01:54 04/14/24 02:38 04/14/24 03:52 Temperature 98.3 F Temperature Source Oral Pulse Rate 81 68 68 Pulse Rate [Left] Respiratory Rate 14 14 14 Blood Pressure 114/67 133/67 133/67 Blood Pressure [Right Arm] Blood Pressure Mean Blood Pressure Mean [Right Arm] Blood Pressure Source Automatic Cuff Blood Pressure Source [Right Arm] Blood Pressure Position Supine 02 Sat by Pulse Oximetry 98 98 Oxygen Delivery Method Room Air Room Air Room Air Lab Data Lab results reviewed: Yes I reviewed the patient's lab results. Lab Results 04/13/24 20:45: WBC 8.5, RBC 3.45 L, Hgb 11.0 L, Hct 34.6 L, MCV 100.4 H, MCH 31.9 H, MCHC 31.7 L, RDW 13.5, Plt Count 216, MPV 8.8, Neut % (Auto) 71.7, Lymph % (Auto) 16.8, Story % (Auto) 10.3 H, Eos % (Auto) 0.6, Baso % (Auto) 0.6, Neut # (Auto) 6.1, Lymph # (Auto) 1.4, Story # (Auto) 0.9, Eos # (Auto) 0.1, Baso # (Auto) 0.1, ESR 25, Hemoglobin A1c 5.2, C-Reactive Protein 6.3 H 04/14/24 00:00: Sodium 135 L, Potassium 4.1, Chloride 102, Carbon Dioxide 24, Anion Gap 13.1, BUN 23 H, Creatinine 0.90, Estimated Creat Clear 35, Estimated GFR 59, Est GFR ( Amer) 71, Glucose 172 H, Lactate 1.2, Calcium 9.9, Total Bilirubin 1.1, AST 38 H, ALT 22, Alkaline Phosphatase 114, Total Protein 7.0, Albumin 4.0, Globulin 3.0, Albumin/Globulin Ratio 1.3 04/13/24 20:45 04/14/24 00:00 Orders (Tests/Meds): ED MEDICATIONS Discontinued Medications Generic Name Dose Route Start Last Admin Trade Name Freq PRN Reason Stop Dose Admin Acetaminophen 1,000 mg 04/13/24 20:41 04/13/24 20:51 Acetaminophen 500mg Tab PO 04/13/24 20:42 1,000 mg ONCE ONE Administration Dexamethasone Sodium Phosphate 10 mg 04/13/24 20:41 04/13/24 20:52 Dexamethasone 4mg/Ml 1ml Vial IV 04/13/24 20:42 10 mg ONCE ONE Administration Hydromorphone HCl 0.5 mg 04/13/24 21:58 04/13/24 22:07 Hydromorphone 2mg/Ml Syringe IV 04/13/24 21:59 0.5 mg ONCE ONE Administration Lactated Ringer's 1,000 mls @ 999 mls/hr 04/14/24 00:41 04/14/24 00:56 Lactated Ringer's 1000 Ml Bag IV 04/14/24 01:41 999 mls/hr .Q1H1M ONE Administration Iopamidol 75 ml 04/14/24 00:55 04/14/24 00:56 Iopamidol-370 (76%);100ml Bottle IV 04/14/24 00:56 75 ml ONCE ONE Administration Ketorolac Tromethamine 15 mg 04/13/24 20:41 04/13/24 20:52 Ketorolac 30mg/Ml Vial IV 04/13/24 20:42 15 mg ONCE ONE Administration Sodium Chloride 10 ml 04/14/24 00:55 04/14/24 00:56 Sodium Chloride 0.9% 10ml Syr (Rad Only) IV 05/14/24 00:54 10 ml NEEDED PRN Administration Maintain IV Site ORDERS Category Date Time Status CT abdomen pelvis w con Stat Cat Scan 04/13/24 23:[address] bony pelvis Stat Cat Scan 04/13/24 21:[address] lumbar spine wo con Stat Cat Scan 04/13/24 21:58 Completed CBC w/Auto Diff [Complete Blood Count Auto Diff] Stat Lab 04/13/24 20:45 Completed CMP [Comprehensive Metabolic Panel] Stat Lab 04/13/24 00:00 Completed CRP [C-Reactive Protein] Stat Lab 04/13/24 20:45 Completed ESR [Erythrocyte Sedimentation Rate] Stat Lab 04/13/24 20:45 Completed Hemoglobin A1C Stat Lab 04/13/24 20:45 Completed Lactic Acid Stat Lab 04/13/24 00:00 Completed Medical Decision Narrative: In summary patient is a 88-year-old female who presents to the emergency department for evaluation of right hip and leg pain. Patient is hemodynamically stable upon arrival, afebrile. Physical exam is remarkable for pain on palpation of the right hip but also radiating pain down her right leg with no muscle weakness and motor and sensory are intact distally along with pain across palpation of the lumbar spine balance recesser on the right side. Differential diagnosis includes disc herniation, occult fracture, sciatica, bursitis etc. Initial workup will be conducted with hematologic labs. Initial interventions include Toradol Tylenol and a fluid bolus. Initial workup reviewed by me shows elevated inflammatory markers but otherwise nonactionable laboratory investigations. Upon repeat evaluation patient reported 0% improvement and still reports her pain is a 10 out of 10. We have broadened her workup for a CT scan of the lumbar spine and bony pelvis and added an opiate. 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 Given this had interactive discussion with hospital medicine about admission for ongoing pain management due to her intractable pain and possible PT OT eval. Hospital medicine would like to wait to make sure that there is no official acute abnormality per the radiologist. Hence her workup is pending at the time of handoff at [address] Black <Neo Paz MD - Last Filed: 04/14/24 07:28> Vital Signs: 04/13/24 20:27 04/13/24 21:30 04/13/24 22:00 Temperature 98.3 F Temperature Source Oral Pulse Rate 80 43 L Pulse Rate [Left] 82 Respiratory Rate 16 Blood Pressure 126/63 130/78 Blood Pressure [Right Arm] 124/77 Blood Pressure Mean 101 Blood Pressure Mean [Right Arm] 92 Blood Pressure Source Blood Pressure Source [Right Arm] Automatic Cuff Blood Pressure Position 02 Sat by Pulse Oximetry 98 96 100 Oxygen Delivery Method Room Air 04/13/24 22:27 04/13/24 22:40 04/13/24 23:00 Temperature 98.3 F Temperature Source Oral Pulse Rate 71 92 H 86 Pulse Rate [Left] Respiratory Rate 14 Blood Pressure 108/60 L 107/58 L 107/58 L Blood Pressure [Right Arm] Blood Pressure Mean Blood Pressure Mean [Right Arm] Blood Pressure Source Automatic Cuff Blood Pressure Source [Right Arm] Blood Pressure Position Supine 02 Sat by Pulse Oximetry 98 97 92 L Oxygen Delivery Method Room Air 04/13/24 23:30 04/14/24 00:00 04/14/24 00:30 Temperature Temperature Source Pulse Rate 102 H 108 H 97 H Pulse Rate [Left] Respiratory Rate Blood Pressure 104/47 L 106/69 L 104/58 L Blood Pressure [Right Arm] Blood Pressure Mean Blood Pressure Mean [Right Arm] Blood Pressure Source Blood Pressure Source [Right Arm] Blood Pressure Position 02 Sat by Pulse Oximetry 95 96 95 Oxygen Delivery Method 04/14/24 01:54 04/14/24 02:38 04/14/24 03:52 Temperature 98.3 F Temperature Source Oral Pulse Rate 81 68 68 Pulse Rate [Left] Respiratory Rate 14 14 14 Blood Pressure 114/67 133/67 133/67 Blood Pressure [Right Arm] Blood Pressure Mean Blood Pressure Mean [Right Arm] Blood Pressure Source Automatic Cuff Blood Pressure Source [Right Arm] Blood Pressure Position Supine 02 Sat by Pulse Oximetry 98 98 Oxygen Delivery Method Room Air Room Air Room Air Lab Data Lab Results 04/13/24 20:45: WBC 8.5, RBC 3.45 L, Hgb 11.0 L, Hct 34.6 L, MCV 100.4 H, MCH 31.9 H, MCHC 31.7 L, RDW 13.5, Plt Count 216, MPV 8.8, Neut % (Auto) 71.7, Lymph % (Auto) 16.8, Story % (Auto) 10.3 H, Eos % (Auto) 0.6, Baso % (Auto) 0.6, Neut # (Auto) 6.1, Lymph # (Auto) 1.4, Story # (Auto) 0.9, Eos # (Auto) 0.1, Baso # (Auto) 0.1, ESR 25, Hemoglobin A1c 5.2, C-Reactive Protein 6.3 H 04/14/24 00:00: Sodium 135 L, Potassium 4.1, Chloride 102, Carbon Dioxide 24, Anion Gap 13.1, BUN 23 H, Creatinine 0.90, Estimated Creat Clear 35, Estimated GFR 59, Est GFR ( Amer) 71, Glucose 172 H, Lactate 1.2, Calcium 9.9, Total Bilirubin 1.1, AST 38 H, ALT 22, Alkaline Phosphatase 114, Total Protein 7.0, Albumin 4.0, Globulin 3.0, Albumin/Globulin Ratio 1.3 Orders (Tests/Meds): ED MEDICATIONS Discontinued Medications Generic Name Dose Route Start Last Admin Trade Name Freq PRN Reason Stop Dose Admin Acetaminophen 1,000 mg 04/13/24 20:41 04/13/24 20:51 Acetaminophen 500mg Tab PO 04/13/24 20:42 1,000 mg ONCE ONE Administration Dexamethasone Sodium Phosphate 10 mg 04/13/24 20:41 04/13/24 20:52 Dexamethasone 4mg/Ml 1ml Vial IV 04/13/24 20:42 10 mg ONCE ONE Administration Hydromorphone HCl 0.5 mg 04/13/24 21:58 04/13/24 22:07 Hydromorphone 2mg/Ml Syringe IV 04/13/24 21:59 0.5 mg ONCE ONE Administration Lactated Ringer's 1,000 mls @ 999 mls/hr 04/14/24 00:41 04/14/24 00:56 Lactated Ringer's 1000 Ml Bag IV 04/14/24 01:41 999 mls/hr .Q1H1M ONE Administration Iopamidol 75 ml 04/14/24 00:55 04/14/24 00:56 Iopamidol-370 (76%);100ml Bottle IV 04/14/24 00:56 75 ml ONCE ONE Administration Ketorolac Tromethamine 15 mg 04/13/24 20:41 04/13/24 20:52 Ketorolac 30mg/Ml Vial IV 04/13/24 20:42 15 mg ONCE ONE Administration Sodium Chloride 10 ml 04/14/24 00:55 04/14/24 00:56 Sodium Chloride 0.9% 10ml Syr (Rad Only) IV 05/14/24 00:54 10 ml NEEDED PRN Administration Maintain IV Site ORDERS Category Date Time Status CT abdomen pelvis w con Stat Cat Scan 04/13/24 23:[address] bony pelvis Stat Cat Scan 04/13/24 21:[address] lumbar spine wo con Stat Cat Scan 04/13/24 21:58 Completed CBC w/Auto Diff [Complete Blood Count Auto Diff] Stat Lab 04/13/24 20:45 Completed CMP [Comprehensive Metabolic Panel] Stat Lab 04/13/24 00:00 Completed CRP [C-Reactive Protein] Stat Lab 04/13/24 20:45 Completed ESR [Erythrocyte Sedimentation Rate] Stat Lab 04/13/24 20:45 Completed Hemoglobin A1C Stat Lab 04/13/24 20:45 Completed Lactic Acid Stat Lab 04/13/24 00:00 Completed Medical Decision Narrative: In summary patient is a 88-year-old female who presents to the emergency department for evaluation of right hip and leg pain. Patient is hemodynamically stable upon arrival, afebrile. Physical exam is remarkable for pain on palpation of the right hip but also radiating pain down her right leg with no muscle weakness and motor and sensory are intact distally along with pain across palpation of the lumbar spine balance recesser on the right side. Differential diagnosis includes disc herniation, occult fracture, sciatica, bursitis etc. Initial workup will be conducted with hematologic labs. Initial interventions include Toradol Tylenol and a fluid bolus. Initial workup reviewed by me shows elevated inflammatory markers but otherwise nonactionable laboratory investigations. Upon repeat evaluation patient reported 0% improvement and still reports her pain is a 10 out of 10. We have broadened her workup for a CT scan of the lumbar spine and bony pelvis and added an opiate. 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 Given this had interactive discussion with hospital medicine about admission for ongoing pain management due to her intractable pain and possible PT OT eval. Hospital medicine would like to wait to make sure that there is no official acute abnormality per the radiologist. Hence her workup is pending at the time of handoff at [address] Black I was consulted by the LESLEY, and we discussed the complexity of the problems being addressed. I approved the treatment and management plan for this patient?s care in the Emergency Department, thus performing a substantive portion of the medical decision making. Neo Paz MD Black: Upon my assumption of care patient is stable, her pain is slightly improved but she is still unable to move the right hip. Don has ready spoken to the hospitalist about admission and patient has been tentatively accepted pending negative CT reads. On my personal interpretation of CT scans, I do not appreciate any obvious fracture, patient does have degenerative changes of the right SI joint on my personal interpretation as well as thickening of the musculature on the right. Radiology reads were finalized and mention concern for 9 x 4 x 5 cm abnormality in the iliopsoas muscle. It is possible this is hematoma, however not possible to rule out abscess or malignancy without contrast scan. CMP, lactic acid, blood cultures, A1c were added to patient's workup. Iliopsoas abscess or more likely in diabetics, hence the A1c. Contrasted CT abdomen pelvis was added to patient's workup. On my personal interpretation of this imaging, I appreciate significant thickening in the right iliacus/iliopsoas area. I also appreciate heterogeneity in this area including A relatively well-circumscribed abnormality series 1003, image 28, unclear if this is abscess or hematoma, patient does not have clinical history consistent with hematoma as she has not had recent traumatic injury or fall.. Patient states that she would rather than go to [facility], so I am going to reach out to other facilities first. She states she is not able to go to [facility], so she is only open the [place] facilities. Dr. Marshall at [facility] with general surgery declined the patient stating he would not be comfortable with this type of lesion either and he recommends evaluation by local surgeon prior to considering transfer. I have discussed this with Dr. Mandujano with general surgery here at [facility], and he states that retroperitoneal abnormalities like this could need IR, but also our surgical service is not able to go this deep in the retroperitoneum if it were to be an area that requires debridement. Patient is not appropriate for our surgical services. [facility] has been called for surgery consultation and potential transfer. Unfortunately, have yet to receive a call back from them. Patient decided she would be okay with going to [facility] if they are the only available hospital. Called [facility] for consult and transfer, spoke with transfer center physician who stated patient cannot be transferred to them due to this not being a surgical emergency and being on divert. Dr. Farrar with general surgery at [facility] believes this is more likely an orthopedic problem, though I explained to him this does not involve the bone. Surgeon at Dr. Cobb believes it's hematoma and recommended IR but they are unable to accept the pt for transfer due to being on divert. [facility] orthopedist Dr. Cintron accepted the patient to [facility] as a health and wellness sales consultant. The [facility] transfer center is attempting to connect us with the hospitalist for transfer acceptance. Dr. Hurd with [facility] hospitalist service and I had a discussion over the phone. After discussing the patient, he believes this is likely a spontaneous retroperitoneal hemorrhage given patient has prescription for rivaroxaban. Since she is hemodynamically stable and has hemoglobin of 11.0, he did not recommend reversal of her rivaroxaban at this time, especially since she does not have active extravasation identified on imaging. He accepted the patient for admission to their facility. Patient will go via ALS. She is amenable to transfer. She was transferred in stable condition. <Acosta Black MD - Last Filed: 04/14/24 02:56> Vital Signs: 04/13/24 20:27 04/13/24 21:30 04/13/24 22:00 Temperature 98.3 F Temperature Source Oral Pulse Rate 80 43 L Pulse Rate [Left] 82 Respiratory Rate 16 Blood Pressure 126/63 130/78 Blood Pressure [Right Arm] 124/77 Blood Pressure Mean 101 Blood Pressure Mean [Right Arm] 92 Blood Pressure Source Blood Pressure Source [Right Arm] Automatic Cuff Blood Pressure Position 02 Sat by Pulse Oximetry 98 96 100 Oxygen Delivery Method Room Air 04/13/24 22:27 04/13/24 22:40 04/13/24 23:00 Temperature 98.3 F Temperature Source Oral Pulse Rate 71 92 H 86 Pulse Rate [Left] Respiratory Rate 14 Blood Pressure 108/60 L 107/58 L 107/58 L Blood Pressure [Right Arm] Blood Pressure Mean Blood Pressure Mean [Right Arm] Blood Pressure Source Automatic Cuff Blood Pressure Source [Right Arm] Blood Pressure Position Supine 02 Sat by Pulse Oximetry 98 97 92 L Oxygen Delivery Method Room Air 04/13/24 23:30 04/14/24 00:00 04/14/24 00:30 Temperature Temperature Source Pulse Rate 102 H 108 H 97 H Pulse Rate [Left] Respiratory Rate Blood Pressure 104/47 L 106/69 L 104/58 L Blood Pressure [Right Arm] Blood Pressure Mean Blood Pressure Mean [Right Arm] Blood Pressure Source Blood Pressure Source [Right Arm] Blood Pressure Position 02 Sat by Pulse Oximetry 95 96 95 Oxygen Delivery Method 04/14/24 01:54 04/14/24 02:38 04/14/24 03:52 Temperature 98.3 F Temperature Source Oral Pulse Rate 81 68 68 Pulse Rate [Left] Respiratory Rate 14 14 14 Blood Pressure 114/67 133/67 133/67 Blood Pressure [Right Arm] Blood Pressure Mean Blood Pressure Mean [Right Arm] Blood Pressure Source Automatic Cuff Blood Pressure Source [Right Arm] Blood Pressure Position Supine 02 Sat by Pulse Oximetry 98 98 Oxygen Delivery Method Room Air Room Air Room Air Lab Data Lab Results 04/13/24 20:45: WBC 8.5, RBC 3.45 L, Hgb 11.0 L, Hct 34.6 L, MCV 100.4 H, MCH 31.9 H, MCHC 31.7 L, RDW 13.5, Plt Count 216, MPV 8.8, Neut % (Auto) 71.7, Lymph % (Auto) 16.8, Story % (Auto) 10.3 H, Eos % (Auto) 0.6, Baso % (Auto) 0.6, Neut # (Auto) 6.1, Lymph # (Auto) 1.4, Story # (Auto) 0.9, Eos # (Auto) 0.1, Baso # (Auto) 0.1, ESR 25, Hemoglobin A1c 5.2, C-Reactive Protein 6.3 H 04/14/24 00:00: Sodium 135 L, Potassium 4.1, Chloride 102, Carbon Dioxide 24, Anion Gap 13.1, BUN 23 H, Creatinine 0.90, Estimated Creat Clear 35, Estimated GFR 59, Est GFR ( Amer) 71, Glucose 172 H, Lactate 1.2, Calcium 9.9, Total Bilirubin 1.1, AST 38 H, ALT 22, Alkaline Phosphatase 114, Total Protein 7.0, Albumin 4.0, Globulin 3.0, Albumin/Globulin Ratio 1.3 Orders (Tests/Meds): ED MEDICATIONS Discontinued Medications Generic Name Dose Route Start Last Admin Trade Name Barryq PRN Reason Stop Dose Admin Acetaminophen 1,000 mg 04/13/24 20:41 04/13/24 20:51 Acetaminophen 500mg Tab PO 04/13/24 20:42 1,000 mg ONCE ONE Administration Dexamethasone Sodium Phosphate 10 mg 04/13/24 20:41 04/13/24 20:52 Dexamethasone 4mg/Ml 1ml Vial IV 04/13/24 20:42 10 mg ONCE ONE Administration Hydromorphone HCl 0.5 mg 04/13/24 21:58 04/13/24 22:07 Hydromorphone 2mg/Ml Syringe IV 04/13/24 21:59 0.5 mg ONCE ONE Administration Lactated Ringer's 1,000 mls @ 999 mls/hr 04/14/24 00:41 04/14/24 00:56 Lactated Ringer's 1000 Ml Bag IV 04/14/24 01:41 999 mls/hr .Q1H1M ONE Administration Iopamidol 75 ml 04/14/24 00:55 04/14/24 00:56 Iopamidol-370 (76%);100ml Bottle IV 04/14/24 00:56 75 ml ONCE ONE Administration Ketorolac Tromethamine 15 mg 04/13/24 20:41 04/13/24 20:52 Ketorolac 30mg/Ml Vial IV 04/13/24 20:42 15 mg ONCE ONE Administration Sodium Chloride 10 ml 04/14/24 00:55 04/14/24 00:56 Sodium Chloride 0.9% 10ml Syr (Rad Only) IV 05/14/24 00:54 10 ml NEEDED PRN Administration Maintain IV Site ORDERS Category Date Time Status CT abdomen pelvis w con Stat Cat Scan 04/13/24 23:[address] bony pelvis Stat Cat Scan 04/13/24 21:[address] lumbar spine wo con Stat Cat Scan 04/13/24 21:58 Completed CBC w/Auto Diff [Complete Blood Count Auto Diff] Stat Lab 04/13/24 20:45 Completed CMP [Comprehensive Metabolic Panel] Stat Lab 04/13/24 00:00 Completed CRP [C-Reactive Protein] Stat Lab 04/13/24 20:45 Completed ESR [Erythrocyte Sedimentation Rate] Stat Lab 04/13/24 20:45 Completed Hemoglobin A1C Stat Lab 04/13/24 20:45 Completed Lactic Acid Stat Lab 04/13/24 00:00 Completed Medical Decision Narrative: In summary patient is a 88-year-old female who presents to the emergency department for evaluation of right hip and leg pain. Patient is hemodynamically stable upon arrival, afebrile. Physical exam is remarkable for pain on palpation of the right hip but also radiating pain down her right leg with no muscle weakness and motor and sensory are intact distally along with pain across palpation of the lumbar spine balance recesser on the right side. Differential diagnosis includes disc herniation, occult fracture, sciatica, bursitis etc. Initial workup will be conducted with hematologic labs. Initial interventions include Toradol Tylenol and a fluid bolus. Initial workup reviewed by me shows elevated inflammatory markers but otherwise nonactionable laboratory investigations. Upon repeat evaluation patient reported 0% improvement and still reports her pain is a 10 out of 10. We have broadened her workup for a CT scan of the lumbar spine and bony pelvis and added an opiate. 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 Given this had interactive discussion with hospital medicine about admission for ongoing pain management due to her intractable pain and possible PT OT eval. Hospital medicine would like to wait to make sure that there is no official acute abnormality per the radiologist. Hence her workup is pending at the time of handoff at [address] Wayne Black: Upon my assumption of care patient is stable, her pain is slightly improved but she is still unable to move the right hip. Don has ready spoken to the hospitalist about admission and patient has been tentatively accepted pending negative CT reads. On my personal interpretation of CT scans, I do not appreciate any obvious fracture, patient does have degenerative changes of the right SI joint on my personal interpretation as well as thickening of the musculature on the right. Radiology reads were finalized and mention concern for 9 x 4 x 5 cm abnormality in the iliopsoas muscle. It is possible this is hematoma, however not possible to rule out abscess or malignancy without contrast scan. CMP, lactic acid, blood cultures, A1c were added to patient's workup. Iliopsoas abscess or more likely in diabetics, hence the A1c. Contrasted CT abdomen pelvis was added to patient's workup. On my personal interpretation of this imaging, I appreciate significant thickening in the right iliacus/iliopsoas area. I also appreciate heterogeneity in this area including A relatively well-circumscribed abnormality series 1003, image 28, unclear if this is abscess or hematoma, patient does not have clinical history consistent with hematoma as she has not had recent traumatic injury or fall.. Patient states that she would rather than go to [facility], so I am going to reach out to other facilities first. She states she is not able to go to [facility], so she is only open the [place] facilities. Dr. Marshall at [facility] with general surgery declined the patient stating he would not be comfortable with this type of lesion either and he recommends evaluation by local surgeon prior to considering transfer. I have discussed this with Dr. Mandujano with general surgery here at [facility], and he states that retroperitoneal abnormalities like this could need IR, but also our surgical service is not able to go this deep in the retroperitoneum if it were to be an area that requires debridement. Patient is not appropriate for our surgical services. [facility] has been called for surgery consultation and potential transfer. Unfortunately, have yet to receive a call back from them. Patient decided she would be okay with going to [facility] if they are the only available hospital. Called [facility] for consult and transfer, spoke with transfer center physician who stated patient cannot be transferred to them due to this not being a surgical emergency and being on divert. Dr. Farrar with general surgery at [facility] of believes this is more likely an orthopedic problem, though I explained to him this does not involve the bone. Surgeon at Dr. Cobb believes it's hematoma and recommended IR but they are unable to accept the pt for transfer due to being on divert. [facility] orthopedist Dr. Cintron accepted the patient to [facility] as a health and wellness sales consultant. The [facility] transfer center is attempting to connect us with the hospitalist for transfer acceptance. Dr. Hurd with [facility] hospitalist service and I had a discussion over the phone. After discussing the patient, he believes this is likely a spontaneous retroperitoneal hemorrhage given patient has prescription for rivaroxaban. Since she is hemodynamically stable and has hemoglobin of 11.0, he did not recommend reversal of her rivaroxaban at this time, especially since she does not have active extravasation identified on imaging. He accepted the patient for admission to their facility. Patient will go via ALS. She is amenable to transfer. She was transferred in stable condition. Critical Care <LANE [facility] - Last Filed: 04/13/24 23:07> Critical Care Time Critical Care Time: No
--- NOTE | 2024-04-13 21:56 | CT_ITS ---
PROCEDURE INFORMATION: Exam: CT Pelvis Without Contrast; Skeletal Exam date and time: 04/13/2024 10:21 PM Age: 88 years old Clinical indication: Pelvic pain; Additional info: Right hip pain TECHNIQUE: Imaging protocol: Computed tomography of the pelvis without contrast. Exam focused on the skeleton. Radiation optimization: All CT scans at this facility use at least one of these dose optimization techniques: automated exposure control; mA and/or kV adjustment per patient size (includes targeted exams where dose is matched to clinical indication); or iterative reconstruction. COMPARISON: 1. CR XR HIP RT 2-3V W/PELVIS 04/13/2024 9:[address] LUMBAR SPINE WO CON 04/13/2024 10:18 PM FINDINGS: Vasculature: Partially visualized infrarenal abdominal aortic aneurysm. Reproductive: Calcified uterine fibroids are partially seen. Bones/joints: There are collar osteophytes of the right femoral neck. There is diffuse osseous demineralization. Please see the dedicated interpretation of the spine for findings in that region. Soft tissues: There is a 9.1 x 4.6 x 5.0 cm complex lesion within the right iliacus and iliopsoas which could reflect hematoma but contrast-enhanced study is suggested for further evaluation. IMPRESSION: There is a 9.1 x 4.6 x 5.0 cm complex lesion within the right iliacus and iliopsoas which could reflect hematoma but contrast-enhanced study is suggested for further evaluation.
--- NOTE | 2024-04-13 21:58 | CT_ITS ---
PROCEDURE INFORMATION: Exam: CT Lumbar Spine Without Contrast Exam date and time: 04/13/2024 10:18 PM Age: 88 years old Clinical indication: Low back pain; Additional info: Right hip pain, radiculopathy TECHNIQUE: Imaging protocol: Computed tomography of the lumbar spine without contrast. Radiation optimization: All CT scans at this facility use at least one of these dose optimization techniques: automated exposure control; mA and/or kV adjustment per patient size (includes targeted exams where dose is matched to clinical indication); or iterative reconstruction. COMPARISON: CR XR HIP RT 2-3V W/PELVIS 04/13/2024 9:12 AM FINDINGS: Bones/joints: There is diffuse osseous demineralization. There is anterolisthesis of L4 on L5.No evidence of acute spondylolisthesis or vertebral subluxation. Vertebral body heights are generally preserved, but some endplate sclerosis and anterior osteophytes are noted at multiple levels. Narrowing of multiple intervertebral disc spaces observed, indicative of degenerative disc disease. Hypertrophic changes are seen in the facet joints, consistent with osteoarthritis. No fractures or bony lesions identified. No abnormalities seen in adjacent osseous structures. The degree of demineralization is such that underlying nondisplaced fractures are difficult to exclude. Diaphragm: There is a large hiatal hernia which is partially visualized. Reproductive: Partially visualized calcified uterine fibroids. Vasculature: There is an infrarenal abdominal aortic aneurysm with aneurysm sac measuring up to 3.2 cm. Soft tissues: Unremarkable. Other findings: No obvious abnormalities seen in the prevertebral and paravertebral soft tissues. IMPRESSION: 1. Degenerative changes without acute abnormality detected. 2. 3.2 cm infrarenal abdominal aortic aneurysm. 3. The degree of demineralization is such that underlying nondisplaced fractures are difficult to exclude. 4. If clinical concern persists, MRI would be suggested.
[2024-04-13] MEDS: HYDROMORPHONE 2MG/ML SYRINGE 0.5 MG IV (22:07)
--- NOTE | 2024-04-13 22:17 | PC.NURSE ---
Pt given Dilaudid and transported to CT scan
--- NOTE | 2024-04-13 23:49 | CT_ITS ---
PROCEDURE INFORMATION: Exam: CT Abdomen And Pelvis With Contrast Exam date and time: 04/14/2024 12:47 AM Age: 88 years old Clinical indication: Abdominal pain; Additional info: Iliopsoas lesion TECHNIQUE: Imaging protocol: Computed tomography of the abdomen and pelvis with contrast. Radiation optimization: All CT scans at this facility use at least one of these dose optimization techniques: automated exposure control; mA and/or kV adjustment per patient size (includes targeted exams where dose is matched to clinical indication); or iterative reconstruction. Contrast material: ISOVUE; Contrast volume: 75 ml; Contrast route: IV; COMPARISON: 1. CT BONY PELVIS 04/13/2024 10:21 PM 2. CR XR HIP RT 2-3V W/PELVIS 04/13/2024 9:[address] LUMBAR SPINE WO CON 04/13/2024 10:18 PM FINDINGS: Lungs: Scattered areas of bronchial wall thickening which are likely chronic inflammatory. A few areas of subpleural reticulation are noted, nonspecific. Diaphragm: There is a very large hiatal hernia. Liver: Normal. Gallbladder and bile ducts: No acute process. Pancreas: Normal. Spleen: Normal. Adrenal glands: The adrenal glands appear normal. Kidneys and ureters: Simple appearing right renal cyst. Stomach and bowel: There is large volume stool throughout the colon. Appendix: No evidence of appendicitis. Intraperitoneal space: There is a small volume of free fluid in the pelvis. Vasculature: There is an infrarenal abdominal aortic aneurysm measuring 3.2 cm. There is atherosclerotic disease of the visualized aorta and its major branch vessels. Lymph nodes: No lymphadenopathy. Urinary bladder: Unremarkable as visualized. Reproductive: Calcified uterine fibroids. Bones/joints: There is diffuse degenerative disease of the visualized osseous structures. Soft tissues: Unremarkable. Other findings: Heterogeneous expansion of the right iliacus is again noted, unchanged in size. There is no evidence for extravasation on delayed phase imaging. IMPRESSION: 1. There is a very large hiatal hernia. 2. Stable heterogeneous expansion of the right iliacus/iliopsoas musculature without evidence for extravasation on arterial or delayed phase imaging. This is favored to reflect hematoma but short-term follow-up imaging is recommended to demonstrate resolution and exclude underlying mass. COMMENTS: Consistent with the [employer]'s Incidental Findings Committee white paper (J Am Alfred Radiol 2018): Any incidental renal lesion less than 1 cm or classified as too small to characterize, or any incidental cystic renal lesion characterized as simple-appearing, is likely benign. No follow-up imaging is recommended for these lesions per consensus recommendations based on imaging criteria.
[2024-04-14] VITALS: BP 106/69; PULSE 108; O2SAT 96
--- NOTE | 2024-04-14 00:02 | PC.NURSE ---
hot mill supervisor aware bedrequest is on hold d/t CT finding, will CT with contrast to rule out abscess or malignancy
[2024-04-14 00:08] LABS: Hemoglobin A1C 5.2 % (4.0-6.0)
[2024-04-14 00:22] LABS: Chloride 102 mmol/L (98-107); Potassium 4.1 mmoL/L (3.5-5.1); Sodium 135 mmol/L (136-145)
[2024-04-14 00:24] LABS: Alanine Aminotransferase 22 U/L (12-78); Alkaline Phosphatase 114 U/L (38-126); Anion Gap 13.1 mEq/L (5-15); Aspartate Amino Transferase 38 U/L (14-36); Bilirubin,Total 1.1 mg/dl (0.2-1.3); Blood Urea Nitrogen 23 mg/dl (7-17); Carbon Dioxide 24 mmol/L (22.0-30.0); Creatinine Clearance Estimated 35 mL/min (50-200); Estimated Glomerular Filt Rate 59 ml/min (>60); GFR (African American) 71 ML/MIN (>60); Lactic Acid 1.2 mmol/L (0.7-2.1)
[2024-04-14 00:25] LABS: Albumin/Globulin Ratio 1.3 (1.1-1.8); Calcium 9.9 mg/dl (8.4-10.2); Glucose 172 mg/dl (74-100)
[2024-04-14 00:30] VITALS: BP 104/58; PULSE 97; O2SAT 95
--- NOTE | 2024-04-14 00:47 | PC.NURSE ---
pt to CT
[2024-04-14] MEDS: IOPAMIDOL-370 (76%);100ML BOTTLE 75 ML IV (00:56)
[2024-04-14] MEDS: SODIUM CHLORIDE 0.9% 10ML SYR (RAD ONLY) 10 ML IV (00:56)
[2024-04-14] MEDS: LACTATED RINGERS 1000ML 1,000 ML 999 ML IV (00:56)
--- NOTE | 2024-04-14 01:24 | PC.NURSE ---
Call to [facility], awaiting return call
--- NOTE | 2024-04-14 01:30 | PC.NURSE ---
Call to [facility] re: transfer to their facility, ED doctor on phone with Dr. Marshall
[2024-04-14 01:54] VITALS: BP 114/67; PULSE 81; RESP 14; O2SAT 98
--- NOTE | 2024-04-14 01:58 | PC.NURSE ---
calling [facility]
--- NOTE | 2024-04-14 02:02 | PC.NURSE ---
Eduar in radiology to power share images to [facility]
[2024-04-14 02:38] VITALS: BP 133/67; PULSE 68; RESP 14; O2SAT 98
--- NOTE | 2024-04-14 02:50 | PC.NURSE ---
pt accepted at [facility], waiting for return call, patient will either be direct admit or will be accepted to ED
--- NOTE | 2024-04-14 03:21 | PC.NURSE ---
EMS notified of need for transport
--- NOTE | 2024-04-14 03:23 | INFXCTL.NOTE ---
report called to Leslie Woodall
--- NOTE | 2024-04-14 03:24 | PC.NURSE ---
report called to Leslie Villafana [facility]
[2024-04-14 03:52] VITALS: BP 133/67; PULSE 68; RESP 14; TEMP 36.8; O2SAT 97
== END 2024-04-14 03:52 | disposition critical access hospital (66) ==
PROVIDERS: Emergency Medicine; Emergency Provider Emergency Medicine; PCP Family Medicine
DX: M25.551 Pain in right hip (principal); M54.31 Sciatica, right side; I11.0 Hypertensive heart disease with heart failure; I50.33 Acute on chronic diastolic (congestive) heart failure; E78.5 Hyperlipidemia, unspecified; I48.0 Paroxysmal atrial fibrillation; Z86.718 Personal history of other venous thrombosis and embolism
CPT/HCPCS: 72131; 72192; 73502; 73590; 74177; 80053; 83036; 83605; 85025; 85651; 86140; 96361; 96374; 96375; 99285; Q9967

== ENCOUNTER 2024-04-22 10:44 | Outpatient (CLI) | payer MEDICARE, BC, SELFPAY ==
[2024-04-22 11:02] LABS: Basophils % 0.6 % (0.1-2.0); Eosinophils % 0.1 % (0.1-12.0); Hematocrit 37.9 % (37.0-47.0); Hemoglobin 12.2 g/dL (12.2-16.2); Lymphocytes # 1.8 K/mm3 (0.7-4.5); Lymphocytes % 26.3 % (10-50); Mean Corpuscular HGB Conc 32.3 g/dL (31.8-35.4); Mean Corpuscular Hemoglobin 31.8 pg (27.0-31.2); Mean Corpuscular Volume 98.3 fl (81-99); Mean Platelet Volume 8.7 fl (7.4-10.4); Monocytes # 0.8 K/mm3 (0.1-1.0); Monocytes % 11.1 % (1.7-9.3); Neutrophils # 4.3 K/mm3 (1.8-7.8); Neutrophils % 61.8 % (37.0-80.0); Platelet Count 252 K/mm3 (142-424); Red Blood Count 3.86 M/mm3 (4.20-5.40); Red Cell Distribution Width 14.2 % (11.5-17.5)
[2024-04-22 11:43] LABS: Blood Urea Nitrogen 17 mg/dl (7-17); Calcium 10.1 mg/dl (8.4-10.2); Estimated Glomerular Filt Rate 59 ml/min (>60); GFR (African American) 71 ML/MIN (>60); Glucose 99 mg/dl (74-100); Potassium 4.3 mmoL/L (3.5-5.1); Sodium 140 mmol/L (136-145)
[2024-04-22 11:44] LABS: Carbon Dioxide 27 mmol/L (22.0-30.0)
[2024-04-22 13:21] LABS: Anion Gap 13.3 mEq/L (5-15); Chloride 104 mmol/L (98-107)
--- NOTE | 2024-04-22 14:06 | CT_ITS ---
FINAL REPORT TECHNIQUE: Axial imaging of the pelvis was obtained without contrast.This study was performed with techniques to keep radiation doses as low as reasonably achievable, (ALARA). Individualized dose reduction technique using automated exposure control or adjustment of mA and/or kV according to the patient's size were employed. CLINICAL HISTORY: right hip hematoma COMPARISON: 04/13/2024 FINDINGS: There is no acute fracture or dislocation. Femoral heads are located bilaterally. There is vascular calcification is seen of the abdominal aorta and iliacs. There are calcified fibroids in the uterus. Heterogeneous expansion is seen of the right iliac us measuring 3.8 cm in diameter which is smaller than on prior exam consistent with resolving hematoma. There are moderately advanced changes of hip joint space narrowing. There are moderate hypertrophic changes of the right hip. There is extensive sigmoid diverticulosis. IMPRESSION: Resolving right iliac is hematoma. Reviewed, Interpreted and Dictated by Rigo Olvera MD Transcribed by Brianna Alvarado Authenticated and . [facility]
--- NOTE | 2024-04-22 14:37 | CA_ITS ---
APPROVED REPORT EXAM: Comprehensive 2D, Doppler, and color-flow Echocardiogram Maintenance Operator: NATE Segal, RVS Ht: 5 ft 1 in Wt: 128lbs BSA: 1.56 BP: 155/95 mmHg Rhythm: Atrial Fibrillation Indications: SOA, Afib, AI, MR, PI, TR-PHTN, CHF 2D Dimensions Left Atrium 4.89 cm F: 2.7 - 3.8 LA Volume 178.90 mL LA Volume Index 114.68 mL/m2 (M/F) 16-34 M-Mode Dimensions RVDd 3.40 cm (0.9-2.6) LA Diam 6.22 cm (1.9-4.0) LVDd 4.84 cm (3.5-5.7) LVDs 3.04 cm (3.5-5.7) IVSd 0.94 cm (0.6-1.1) PWd 0.81 cm (0.6-1.1) EF (Teich) 68.70% EPSs 0.38 cm FS 38.60% EDV (Teich) 115.50 mL TAPSE 1.33 (<1.7) ESV (Teich) 36.20 mL LV Diastology E Decel Time 147 (160-240 msec) E/A Ratio 3.29 MED A' 3.90 cm/s LAT A' 4.80 cm/s Pulm Vein s 31.00 cm/sec Aortic Valve NASREEN Index 1.07 cm2/m2 AoV Peak Jama. 138.0 (50-130 cm/s) AI PHT 477.00 ms AO Peak GR. 7.60 mmHg AO Mean GR. 3.80 (<5 mmHg) AO VTI 26.6 (18-25 cm) NASREEN (VTI) 1.71 (2.5-4.5 cm2) Mitral Valve MV A Velocity 41.0 (40-130 cm/s) E/A Ratio 3.29 MV Mean Gr. 2.80 (<2mmHg) Pulmonary Valve PV Peak Velocity 112.0 (50-150 cm/s) Tricuspid Valve TR P. Velocity 302.00 cm/s RAP Estimate 10.00 mmHg RVSP 46.50 mmHg Left Ventricle The left ventricle is normal size. Left ventricular systolic function is normal. There is increased LV wall thickness. There is normal LV segmental wall motion. Diastolic function is indeterminate due to atrial fibrillation. LVEF is 60%. Right Ventricle Right ventricle is mildly dilated. Right ventricle is mildly hypokinetic. Atria Left atrium is severely dilated. Right atrium is severely dilated. There is no Doppler evidence of interatrial shunt. Aortic Valve The aortic valve is mildly thickened. There is no aortic valvular stenosis. Mild aortic regurgitation. Mitral Valve Mild mitral annular calcification (MAC). The mitral valve leaflets are mildly thickened. No evidence of mitral valve stenosis. Severe mitral regurgitation. The MR jet is eccentric and is posteriorly directed. VCW is 0.7 cm. EROA=0.42 cm2. MR Vol=66 mL. Regurgitant volume is 59%. The mechanism of MR is not confirmed on this TTE, but is suspected to be due to tethering of the posterior MV leaflet (Shukri Class IIIB). Tricuspid Valve The tricuspid valve leaflets are thin and pliable. Severe tricuspid regurgitation. RVSP is 45-50 mmHg. Pulmonic Valve The pulmonary valve is normal in structure. Mild pulmonic regurgitation. Great Vessels The aortic root is normal in size. The ascending aorta is not well visualized. The IVC is dilated. Pericardium There is no pericardial effusion. Other Information Study Quality: Fair Conclusion Low-normal LV systolic function in the setting of severe MR (LVEF 60%). Mildly dilated RV with mild reduction in RV function. Severe biatrial dilation. Severe MR with eccentric posterior MR jet (VCW is 0.7 cm. EROA=0.42 cm2. MR Vol=66 mL. Regurgitant volume is 59%). Severe TR. Mild AI, mild PI. Markedly elevated RVSP 45-50 mmHg. Mechanism of MR is not confirmed on this TTE, but is suspected to be due to tethering of the posterior MV leaflet (Shukri Class IIIB). If clinically appropriate, further evaluation with GREGORIA is recommended to evaluate mechanism of MR for appropriate triaging and possible referral to interventional cardiology vs. CT surgery. Electronically signed by : Phuong Mccloud MD 04/25/2024 23:55:36
== END 2024-04-22 23:59 | disposition home or self-care (01) ==
PROVIDERS: PCP Family Medicine; Visit Provider Physician Assistant
DX: I50.33 Acute on chronic diastolic (congestive) heart failure (principal); I08.0 Rheumatic disorders of both mitral and aortic valves; E78.5 Hyperlipidemia, unspecified; I48.19 Other persistent atrial fibrillation; R60.9 Edema, unspecified; R94.31 Abnormal electrocardiogram [ECG] [EKG]; I48.91 Unspecified atrial fibrillation; Z79.899 Other long term (current) drug therapy
CPT/HCPCS: 36415; 72192; 80048; 85025; 93306

== ENCOUNTER 2024-10-05 12:47 | Outpatient (CLI) | payer MEDICARE, BC, SELFPAY ==
--- NOTE | 2024-10-05 12:52 | XR_ITS ---
PROCEDURE INFORMATION: Exam: XR Right Shoulder Exam date and time: 10/05/2024 1:01 PM Age: 89 years old Clinical indication: Pain; Shoulder; Right; Additional info: Right shoulder pain TECHNIQUE: Imaging protocol: Radiologic exam of the right shoulder. Views: 2 or more views. COMPARISON: No relevant prior studies available. FINDINGS: Bones/joints: No visible fracture or dislocation. Soft tissues: Normal. IMPRESSION: No visible fracture or dislocation.
== END 2024-10-05 23:59 | disposition home or self-care (01) ==
LOC: RAD 12:49
PROVIDERS: PCP Family Medicine; Visit Provider Physician Assistant
DX: M25.511 Pain in right shoulder (principal)
CPT/HCPCS: 73030